=== PATIENT | male | born 1955 | race Caucasian/White ===

== ENCOUNTER 2018-10-16 20:09 | Inpatient (IN) | payer MEDICAID, MEDICARE, OTHER, SELFPAY ==
[~2018-10-16] VITALS: Ht 175.3 cm; Wt 122.6 kg
[2018-10-16] MEDS ORDERED: methylPREDNISolone SOD SUCC 125 MG/2 ML ONE (20:42)
--- NOTE | 2018-10-16 20:52 | NUR ---
Pt presents to ed c/o hx of copd and recent pneumonia w/ hospitalization. Pt has sobx2 day and has o2 sat of 84% on 5L nc. Pt put on NRB at 10L and spo2 at 92%. Pt states that is his normal spo2 level. Pt wob started to decrease w/ increase spo2. Iv established and medicatd per aug. all monitoring applied.
[2018-10-16] MEDS ORDERED: ALBUTEROL/IPRATROPIUM 2.5MG/0.5MG, 3 ML NPPB ONE (21:00)
[2018-10-16] MEDS ORDERED: SODIUM CHLORIDE FLUSH 10ML SYR IVF ONE (21:00)
[2018-10-16] MEDS ORDERED: methylPREDNISolone SOD SUCC 125 MG/2 ML IVP ONE (21:00)
[2018-10-16 21:18] LABS: BASOPHILS # (AUTO) 0.03 x10^3/uL (0-0.1); BASOPHILS % (AUTO) 0 % (0-1); EOSINOPHILS # (AUTO) 0.23 x10^3/uL (0-0.4); EOSINOPHILS % (AUTO) 4 % (1-7); LYMPHOCYTES # (AUTO) 0.91 x10^3/uL (1-3.4); LYMPHOCYTES % (AUTO) 14 % (22-44); MD NO; MEAN CORPUSCULAR HEMOGLOBIN 29.3 pg (27.5-34.5); MEAN CORPUSCULAR VOLUME 88.9 fL (81-97); MEAN PLATELET VOLUME 7.6 fL (7.4-10.4); MONOCYTES # (AUTO) 0.98 x10^3/uL (0.2-0.8); MONOCYTES % (AUTO) 15 % (2-9); NEUTROPHILS # (AUTO) 4.45 x10^3/uL (1.8-6.8); NEUTROPHILS % (AUTO) 67 % (42-75); PLATELET COUNT 196 x10^3/uL (130-400); RED BLOOD COUNT 4.95 x10^6/uL (4.38-5.82); RED CELL DISTRIBUTION WIDTH 14.7 % (9.4-14.8)
[2018-10-16 21:19] LABS: INTERNATIONAL NORMALIZED RATIO 1.02 (0.93-1.1); PROTHROMBIN TIME 10.7 Seconds (9.6-11.5)
[2018-10-16 21:20] LABS: ALANINE AMINOTRANSFERASE 26 U/L (12-78); ALBUMIN 3.7 g/dL (3.4-5.0); ANION GAP 4 mmol/L (5-15); CALCIUM 8.7 mg/dL (8.5-10.1); CHLORIDE 108 mmol/L (98-107); CREATININE 1.02 mg/dL (0.7-1.3)
[2018-10-16 21:24] LABS: ALKALINE PHOSPHATASE 49 U/L (45-117); BILIRUBIN,TOTAL 0.3 mg/dL (0.2-1.0); TOTAL PROTEIN 7.2 g/dL (6.4-8.2); TROPONIN I < 0.015 ng/mL (0.000-0.045)
--- NOTE | 2018-10-16 21:51 | NUR ---
Pt given ice chips per request. Tbadm. Awaiting adm order. No other immediate needs.
[2018-10-16] MEDS ORDERED: ALBUTEROL/IPRATROPIUM 2.5MG/0.5MG, 3 ML ONE (22:29)
[2018-10-16 22:58] VITALS: BP 137/83
[2018-10-17] MEDS ORDERED: DOCUSATE 100 MG CAPSULE PO PRN
[2018-10-17] MEDS ORDERED: ENALAPRILAT 1.25 MG/ML, 2ML IVPush PRN
[2018-10-17] MEDS ORDERED: ONDANSETRON 2MG/ML, 2ML IVPush PRN
[2018-10-17] MEDS: TEMAZEPAM 15 MG CAPSULE PO PRN (00:33)
[2018-10-17] MEDS: ENOXAPARIN 40 MG/0.4 ML SQ SCH (00:34)
[2018-10-17] MEDS: INSULIN LISPRO 100 UNITS/ML, PEN SQ-INSULIN SCH ×5 (01:00→20:24)
[2018-10-17] MEDS ORDERED: AMLO25PO PO (01:20)
[2018-10-17] MEDS ORDERED: METO5VIA PO (01:24)
[2018-10-17] MEDS ORDERED: ASPI-515 PO (01:24)
[2018-10-17] MEDS ORDERED: FLUT1DIS3 INH (01:25)
[2018-10-17] MEDS ORDERED: FLUT1AER INH (01:31)
[2018-10-17 02:13] VITALS: BP 134/90
[2018-10-17] MEDS: ALBUTEROL/IPRATROPIUM 2.5MG/0.5MG, 3 ML NPPB SCH ×6 (02:30→23:00)
[2018-10-17] MEDS ORDERED: ALBU6.7H INH (03:05)
[2018-10-17] MEDS ORDERED: ALBU8.5H8 INH (03:06)
[2018-10-17 04:55] LABS: BASOPHILS % (AUTO) 0 % (0-1); EOSINOPHILS % (AUTO) 0 % (1-7); LYMPHOCYTES # (AUTO) 0.42 x10^3/uL (1-3.4); LYMPHOCYTES % (AUTO) 7 % (22-44); MD NO; MEAN CORPUSCULAR HEMOGLOBIN 29.1 pg (27.5-34.5); MEAN CORPUSCULAR HGB CONC 32.8 g/dL (33.2-36.2); MEAN CORPUSCULAR VOLUME 88.7 fL (81-97); MEAN PLATELET VOLUME 7.6 fL (7.4-10.4); MONOCYTES # (AUTO) 0.07 x10^3/uL (0.2-0.8); MONOCYTES % (AUTO) 1 % (2-9); NEUTROPHILS # (AUTO) 5.79 x10^3/uL (1.8-6.8); NEUTROPHILS % (AUTO) 92 % (42-75); PLATELET COUNT 218 x10^3/uL (130-400); RED BLOOD COUNT 5.03 x10^6/uL (4.38-5.82); RED CELL DISTRIBUTION WIDTH 14.9 % (9.4-14.8)
[2018-10-17 05:09] LABS: ANION GAP 6 mmol/L (5-15); CALCIUM 9.1 mg/dL (8.5-10.1); CHLORIDE 108 mmol/L (98-107)
[2018-10-17] MEDS: methylPREDNISolone SOD SUCC 40 MG/ML IV SCH ×3 (06:15→17:14)
[2018-10-17] MEDS: GUAIFENESIN 200 MG TABLET PO SCH ×4 (06:15→20:42)
[2018-10-17 06:53] VITALS: BP 114/72
[2018-10-17 13:08] VITALS: BP 117/79
[2018-10-17 20:14] VITALS: BP 128/77
[2018-10-18] MEDS: TEMAZEPAM 15 MG CAPSULE PO PRN ×2 (00:18→22:30)
[2018-10-18] MEDS: methylPREDNISolone SOD SUCC 40 MG/ML IV SCH ×4 (00:18→17:28)
[2018-10-18] MEDS: ENOXAPARIN 40 MG/0.4 ML SQ SCH (00:18)
[2018-10-18 01:13] VITALS: BP 145/75
[2018-10-18] MEDS: ALBUTEROL/IPRATROPIUM 2.5MG/0.5MG, 3 ML NPPB SCH ×6 (02:34→22:12)
[2018-10-18 06:03] LABS: ANION GAP 4 mmol/L (5-15); CALCIUM 8.8 mg/dL (8.5-10.1); CHLORIDE 110 mmol/L (98-107)
[2018-10-18 06:04] LABS: CREATININE 1.14 mg/dL (0.7-1.3)
[2018-10-18] MEDS: GUAIFENESIN 200 MG TABLET PO SCH ×4 (06:36→21:32)
[2018-10-18] MEDS: INSULIN LISPRO 100 UNITS/ML, PEN SQ-INSULIN SCH ×4 (07:00→21:32)
[2018-10-18 08:00] VITALS: BP 132/76
[2018-10-18] MEDS: CETIRIZINE 10 MG TABLET PO SCH (09:42)
[2018-10-18 12:20] VITALS: BP 135/84
[2018-10-18] MEDS: ACETAMINOPHEN 325 MG TABLET PO PRN ×2 (17:42→22:30)
[2018-10-18] MEDS: LIDODERM 5% PATCH TD PRN (18:13)
[2018-10-18 19:37] VITALS: BP 148/87
[2018-10-19] MEDS: methylPREDNISolone SOD SUCC 40 MG/ML IV SCH ×5 (00:57→20:55)
[2018-10-19 01:54] VITALS: BP 135/79
[2018-10-19] MEDS: ALBUTEROL/IPRATROPIUM 2.5MG/0.5MG, 3 ML NPPB SCH ×6 (02:41→23:09)
[2018-10-19] MEDS: GABAPENTIN 300 MG CAPSULE PO PRN (03:44)
[2018-10-19] MEDS: ACETAMINOPHEN 325 MG TABLET PO PRN (03:48)
[2018-10-19 05:23] LABS: BASOPHILS % (AUTO) 0 % (0-1); EOSINOPHILS % (AUTO) 0 % (1-7); LYMPHOCYTES # (AUTO) 0.63 x10^3/uL (1-3.4); LYMPHOCYTES % (AUTO) 5 % (22-44); MD NO; MEAN CORPUSCULAR HEMOGLOBIN 29.8 pg (27.5-34.5); MEAN CORPUSCULAR HGB CONC 33.5 g/dL (33.2-36.2); MONOCYTES # (AUTO) 0.43 x10^3/uL (0.2-0.8); MONOCYTES % (AUTO) 3 % (2-9); NEUTROPHILS # (AUTO) 12.75 x10^3/uL (1.8-6.8); NEUTROPHILS % (AUTO) 92 % (42-75); PLATELET COUNT 272 x10^3/uL (130-400); RED BLOOD COUNT 4.77 x10^6/uL (4.38-5.82); RED CELL DISTRIBUTION WIDTH 14.6 % (9.4-14.8)
[2018-10-19 05:26] LABS: CHLORIDE 106 mmol/L (98-107)
[2018-10-19 05:41] LABS: ANION GAP 7 mmol/L (5-15); CALCIUM 8.8 mg/dL (8.5-10.1); CREATININE 1.18 mg/dL (0.7-1.3)
[2018-10-19] MEDS: GUAIFENESIN 200 MG TABLET PO SCH ×4 (06:06→20:55)
[2018-10-19] MEDS: ENOXAPARIN 40 MG/0.4 ML SQ SCH (06:06)
[2018-10-19 06:49] VITALS: BP 133/87
[2018-10-19] MEDS: INSULIN LISPRO 100 UNITS/ML, PEN SQ-INSULIN SCH ×4 (07:00→20:55)
[2018-10-19] MEDS: CETIRIZINE 10 MG TABLET PO SCH (08:26)
[2018-10-19] MEDS: METHOCARBAMOL 500 MG TABLET PO PRN ×2 (11:19→20:55)
[2018-10-19 18:20] VITALS: BP 137/81
[2018-10-19] MEDS: CEFTRIAXONE PMX 2GM/50ML 50 ML IV SCH (22:46)
[2018-10-19] MEDS: AZITHROMYCIN 500 MG in SODIUM CHLORIDE 0.9% 250 ML IV SCH (23:27)
[2018-10-20] MEDS: TEMAZEPAM 15 MG CAPSULE PO PRN ×2 (00:45→22:35)
[2018-10-20 01:05] VITALS: BP 139/77
[2018-10-20] MEDS: ALBUTEROL/IPRATROPIUM 2.5MG/0.5MG, 3 ML NPPB SCH ×6 (02:05→22:30)
[2018-10-20 04:03] LABS: BASOPHILS # (AUTO) 0.01 x10^3/uL (0-0.1); BASOPHILS % (AUTO) 0 % (0-1); EOSINOPHILS % (AUTO) 0 % (1-7); LYMPHOCYTES % (AUTO) 5 % (22-44); MD NO; MEAN CORPUSCULAR HEMOGLOBIN 29.1 pg (27.5-34.5); MEAN CORPUSCULAR HGB CONC 32.7 g/dL (33.2-36.2); MEAN PLATELET VOLUME 8.1 fL (7.4-10.4); MONOCYTES # (AUTO) 0.94 x10^3/uL (0.2-0.8); MONOCYTES % (AUTO) 8 % (2-9); NEUTROPHILS # (AUTO) 10.84 x10^3/uL (1.8-6.8); NEUTROPHILS % (AUTO) 88 % (42-75); PLATELET COUNT 234 x10^3/uL (130-400); RED BLOOD COUNT 4.71 x10^6/uL (4.38-5.82); RED CELL DISTRIBUTION WIDTH 14.3 % (9.4-14.8)
[2018-10-20 04:17] LABS: HEMOGLOBIN A1C 5.5 % (4.2-6.3)
[2018-10-20 04:20] LABS: ANION GAP 5 mmol/L (5-15); CALCIUM 8.3 mg/dL (8.5-10.1); CHLORIDE 108 mmol/L (98-107)
[2018-10-20] MEDS: ENOXAPARIN 40 MG/0.4 ML SQ SCH (06:11)
[2018-10-20] MEDS: GUAIFENESIN 200 MG TABLET PO SCH ×4 (06:11→20:07)
[2018-10-20 08:05] VITALS: BP 137/81
[2018-10-20] MEDS: methylPREDNISolone SOD SUCC 40 MG/ML IV SCH ×3 (09:44→20:06)
[2018-10-20] MEDS: INSULIN LISPRO 100 UNITS/ML, PEN SQ-INSULIN SCH ×4 (09:45→21:00)
[2018-10-20] MEDS: CETIRIZINE 10 MG TABLET PO SCH (09:45)
[2018-10-20 14:33] VITALS: BP 134/81
[2018-10-20 19:18] VITALS: BP 144/91
[2018-10-20] MEDS: LIDODERM 5% PATCH TD PRN (20:05)
[2018-10-20] MEDS: ACETAMINOPHEN 325 MG TABLET PO PRN (20:07)
[2018-10-20] MEDS: GABAPENTIN 300 MG CAPSULE PO PRN (20:08)
[2018-10-20] MEDS: CEFTRIAXONE PMX 2GM/50ML 50 ML IV SCH (22:29)
[2018-10-20] MEDS: AZITHROMYCIN 500 MG in SODIUM CHLORIDE 0.9% 250 ML IV SCH (23:30)
[2018-10-21] MEDS: ALBUTEROL/IPRATROPIUM 2.5MG/0.5MG, 3 ML NPPB SCH ×6 (02:30→22:57)
[2018-10-21 04:27] VITALS: BP 142/78
[2018-10-21] MEDS: methylPREDNISolone SOD SUCC 40 MG/ML IV SCH ×4 (05:20→21:15)
[2018-10-21] MEDS: ENOXAPARIN 40 MG/0.4 ML SQ SCH (05:21)
[2018-10-21] MEDS: GUAIFENESIN 200 MG TABLET PO SCH ×4 (05:21→21:14)
[2018-10-21 07:28] VITALS: BP 137/88
[2018-10-21] MEDS: CETIRIZINE 10 MG TABLET PO SCH (08:59)
[2018-10-21] MEDS: INSULIN LISPRO 100 UNITS/ML, PEN SQ-INSULIN SCH ×4 (08:59→21:15)
[2018-10-21] MEDS: GABAPENTIN 300 MG CAPSULE PO PRN (11:36)
[2018-10-21] MEDS: ACETAMINOPHEN 325 MG TABLET PO PRN (11:36)
[2018-10-21 12:53] VITALS: BP 148/94
[2018-10-21] MEDS ORDERED: VANCOMYCIN PMX 1GM/200ML 200 ML IV ONE (15:00)
[2018-10-21] MEDS ORDERED: VANCOMYCIN PER PHARMACY MC SCH (15:00)
[2018-10-21] MEDS ORDERED: VANCOMYCIN 2,000 MG in SODIUM CHLORIDE 0.9% 500 ML IV SCH (15:30)
[2018-10-21] MEDS ORDERED: PHARMACOKINETIC CONSULTATION MC ONE (15:30)
[2018-10-21] MEDS ORDERED: PHARMACOKINETIC MONITORING MC PRN (15:30)
[2018-10-21] MEDS: AMPICILLIN/SULBACTAM 3 GM in SODIUM CHLORIDE 0.9% 100 ML IV SCH ×2 (17:06→23:57)
[2018-10-21 21:12] VITALS: BP 159/92
[2018-10-21] MEDS: MAGNESIUM OXIDE 400 MG TABLET PO SCH (21:14)
[2018-10-22 00:25] VITALS: BP 164/98
[2018-10-22] MEDS: TEMAZEPAM 15 MG CAPSULE PO PRN ×3 (01:38→22:30)
[2018-10-22] MEDS: ALBUTEROL/IPRATROPIUM 2.5MG/0.5MG, 3 ML NPPB SCH ×6 (03:06→22:56)
[2018-10-22] MEDS: methylPREDNISolone SOD SUCC 40 MG/ML IV SCH ×4 (04:17→21:04)
[2018-10-22] MEDS: AMPICILLIN/SULBACTAM 3 GM in SODIUM CHLORIDE 0.9% 100 ML IV SCH (05:55)
[2018-10-22] MEDS: GUAIFENESIN 200 MG TABLET PO SCH ×4 (05:55→21:03)
[2018-10-22] MEDS: ENOXAPARIN 40 MG/0.4 ML SQ SCH (05:55)
[2018-10-22 06:00] LABS: CHLORIDE 107 mmol/L (98-107)
[2018-10-22 06:07] LABS: ALANINE AMINOTRANSFERASE 53 U/L (12-78); ALKALINE PHOSPHATASE 35 U/L (45-117); ANION GAP 3 mmol/L (5-15); BILIRUBIN,TOTAL 0.3 mg/dL (0.2-1.0); CREATININE 0.93 mg/dL (0.7-1.3)
[2018-10-22] MEDS: INSULIN LISPRO 100 UNITS/ML, PEN SQ-INSULIN SCH ×4 (07:00→21:04)
[2018-10-22 07:11] VITALS: BP 152/93
[2018-10-22] MEDS: CETIRIZINE 10 MG TABLET PO SCH (09:01)
[2018-10-22] MEDS: MAGNESIUM OXIDE 400 MG TABLET PO SCH ×2 (09:01→21:03)
[2018-10-22] MEDS: LIDODERM 5% PATCH TD PRN (09:13)
[2018-10-22] MEDS: GABAPENTIN 300 MG CAPSULE PO PRN (09:13)
[2018-10-22] MEDS: METHOCARBAMOL 500 MG TABLET PO PRN (09:13)
[2018-10-22] MEDS ORDERED: OMNIPAQUE 350 MG/ML, 150 ML BOTTLE ONE (10:06)
[2018-10-22] MEDS: CEFTRIAXONE PMX 2GM/50ML 50 ML IV SCH (12:08)
[2018-10-22] MEDS: AZITHROMYCIN 500 MG in SODIUM CHLORIDE 0.9% 250 ML IV SCH (12:08)
[2018-10-22 12:53] VITALS: BP 161/88
[2018-10-22] MEDS: BUDESONIDE 0.5 MG/2 ML INHA INH SCH (18:36)
[2018-10-22 19:07] VITALS: BP 156/95
[2018-10-23 01:52] VITALS: BP 142/83
[2018-10-23] MEDS: methylPREDNISolone SOD SUCC 40 MG/ML IV SCH ×4 (03:58→21:18)
[2018-10-23] MEDS: GUAIFENESIN 200 MG TABLET PO SCH ×4 (05:35→20:24)
[2018-10-23] MEDS: ENOXAPARIN 40 MG/0.4 ML SQ SCH (05:35)
[2018-10-23] MEDS: BUDESONIDE 0.5 MG/2 ML INHA INH SCH ×2 (06:45→19:40)
[2018-10-23] MEDS: ALBUTEROL/IPRATROPIUM 2.5MG/0.5MG, 3 ML NPPB SCH ×5 (06:45→23:00)
[2018-10-23] MEDS: INSULIN LISPRO 100 UNITS/ML, PEN SQ-INSULIN SCH ×4 (07:00→21:00)
[2018-10-23] MEDS: MAGNESIUM OXIDE 400 MG TABLET PO SCH ×2 (07:36→20:25)
[2018-10-23] MEDS: METHOCARBAMOL 500 MG TABLET PO PRN (07:36)
[2018-10-23] MEDS: LIDODERM 5% PATCH TD PRN (07:36)
[2018-10-23] MEDS: CETIRIZINE 10 MG TABLET PO SCH (07:36)
[2018-10-23] MEDS: GABAPENTIN 300 MG CAPSULE PO PRN ×2 (07:36→21:39)
[2018-10-23 08:06] VITALS: BP 155/89
[2018-10-23] MEDS: CEFTRIAXONE PMX 2GM/50ML 50 ML IV SCH (11:30)
[2018-10-23] MEDS: AZITHROMYCIN 500 MG in SODIUM CHLORIDE 0.9% 250 ML IV SCH (12:13)
[2018-10-23 13:25] VITALS: BP 138/83
[2018-10-23 21:13] VITALS: BP 148/97
[2018-10-23] MEDS: TEMAZEPAM 15 MG CAPSULE PO PRN (21:18)
[2018-10-24] MEDS: ALBUTEROL/IPRATROPIUM 2.5MG/0.5MG, 3 ML NPPB SCH ×6 (03:15→22:53)
[2018-10-24 04:32] VITALS: BP 134/76
[2018-10-24 04:52] LABS: FIO2 97.4 %
[2018-10-24] MEDS: methylPREDNISolone SOD SUCC 40 MG/ML IV SCH ×4 (05:30→23:51)
[2018-10-24] MEDS: ENOXAPARIN 40 MG/0.4 ML SQ SCH (05:30)
[2018-10-24] MEDS: GUAIFENESIN 200 MG TABLET PO SCH ×4 (05:34→20:29)
[2018-10-24] MEDS: INSULIN LISPRO 100 UNITS/ML, PEN SQ-INSULIN SCH ×4 (07:00→21:01)
[2018-10-24] MEDS: BUDESONIDE 0.5 MG/2 ML INHA INH SCH ×2 (07:23→19:00)
[2018-10-24 07:34] VITALS: BP 152/90
[2018-10-24] MEDS: GABAPENTIN 300 MG CAPSULE PO PRN ×2 (08:06→21:01)
[2018-10-24] MEDS: MAGNESIUM OXIDE 400 MG TABLET PO SCH ×2 (08:06→20:29)
[2018-10-24] MEDS: METHOCARBAMOL 500 MG TABLET PO PRN (08:06)
[2018-10-24] MEDS: CETIRIZINE 10 MG TABLET PO SCH (08:06)
[2018-10-24] MEDS: LIDODERM 5% PATCH TD PRN ×2 (08:07→17:15)
[2018-10-24 08:24] VITALS: BP 165/99
[2018-10-24] MEDS: CEFTRIAXONE PMX 2GM/50ML 50 ML IV SCH (10:54)
[2018-10-24] MEDS: AZITHROMYCIN 500 MG in SODIUM CHLORIDE 0.9% 250 ML IV SCH (12:11)
[2018-10-24 12:43] VITALS: BP 146/91
[2018-10-24 20:24] VITALS: BP 166/90
[2018-10-25 01:39] VITALS: BP 143/64
[2018-10-25] MEDS: ALBUTEROL/IPRATROPIUM 2.5MG/0.5MG, 3 ML NPPB SCH ×6 (01:53→22:27)
[2018-10-25] MEDS: GUAIFENESIN 200 MG TABLET PO SCH ×4 (06:00→22:12)
[2018-10-25] MEDS: ENOXAPARIN 40 MG/0.4 ML SQ SCH (06:01)
[2018-10-25] MEDS: methylPREDNISolone SOD SUCC 40 MG/ML IV SCH ×4 (06:07→22:12)
[2018-10-25] MEDS: BUDESONIDE 0.5 MG/2 ML INHA INH SCH ×2 (07:12→20:09)
[2018-10-25 09:51] VITALS: BP 131/81
[2018-10-25] MEDS: MAGNESIUM OXIDE 400 MG TABLET PO SCH ×2 (09:53→22:12)
[2018-10-25] MEDS: CETIRIZINE 10 MG TABLET PO SCH (09:53)
[2018-10-25] MEDS: INSULIN LISPRO 100 UNITS/ML, PEN SQ-INSULIN SCH ×4 (09:53→22:13)
[2018-10-25] MEDS: CEFTRIAXONE PMX 2GM/50ML 50 ML IV SCH (11:21)
[2018-10-25] MEDS: AZITHROMYCIN 500 MG in SODIUM CHLORIDE 0.9% 250 ML IV SCH (12:28)
[2018-10-25 13:10] VITALS: BP 134/82
[2018-10-25 19:51] VITALS: BP 145/88
[2018-10-26 01:11] VITALS: BP 129/72
[2018-10-26] MEDS: ALBUTEROL/IPRATROPIUM 2.5MG/0.5MG, 3 ML NPPB SCH ×4 (02:35→15:16)
[2018-10-26] MEDS: ENOXAPARIN 40 MG/0.4 ML SQ SCH (05:48)
[2018-10-26] MEDS: methylPREDNISolone SOD SUCC 40 MG/ML IV SCH ×2 (05:48→11:26)
[2018-10-26] MEDS: GUAIFENESIN 200 MG TABLET PO SCH ×2 (05:49→11:26)
[2018-10-26 07:04] VITALS: BP 140/90
[2018-10-26] MEDS: BUDESONIDE 0.5 MG/2 ML INHA INH SCH (07:15)
[2018-10-26] MEDS: INSULIN LISPRO 100 UNITS/ML, PEN SQ-INSULIN SCH ×2 (07:48→11:27)
[2018-10-26] MEDS: MAGNESIUM OXIDE 400 MG TABLET PO SCH (07:48)
[2018-10-26] MEDS: CETIRIZINE 10 MG TABLET PO SCH (07:48)
[2018-10-26] MEDS ORDERED: CEFD300C37 PO (11:14)
[2018-10-26] MEDS ORDERED: PRED10TA PO ×2 (11:14)
[2018-10-26] MEDS ORDERED: LIDO700A20 TD (11:14)
[2018-10-26] MEDS ORDERED: GUAI-110 PO (11:14)
[2018-10-26] MEDS ORDERED: MAGN400T50 PO (11:14)
[2018-10-26] MEDS ORDERED: GABA300C10 PO (11:14)
[2018-10-26] MEDS ORDERED: AZIT500T PO ×2 (11:14)
[2018-10-26] MEDS: CEFTRIAXONE PMX 2GM/50ML 50 ML IV SCH (11:27)
[2018-10-26] MEDS: AZITHROMYCIN 500 MG in SODIUM CHLORIDE 0.9% 250 ML IV SCH (12:16)
[2018-10-26 13:35] VITALS: BP 138/87
== END 2018-10-26 16:31 | disposition home or self-care (01) | DRG 871 ==
LOC: ED 21:14 → EDIP 21:52 → 4WST 22:57 → DCLOUNGE 10-26 16:20
PROVIDERS: ADMIT Family Medicine; ATTEND Family Medicine
DX: A41.9 Sepsis, unspecified organism (principal); J13 Pneumonia due to Streptococcus pneumoniae; J96.21 Acute and chronic respiratory failure with hypoxia; J44.1 Chronic obstructive pulmonary disease with (acute) exacerbation; J98.11 Atelectasis; J44.0 Chronic obstructive pulmonary disease with (acute) lower respiratory infection; E66.01 Morbid (severe) obesity due to excess calories; D72.829 Elevated white blood cell count, unspecified; T38.0X5A Adverse effect of glucocorticoids and synthetic analogues, initial encounter; E78.5 Hyperlipidemia, unspecified; I11.9 Hypertensive heart disease without heart failure; Z68.39 Body mass index [BMI] 39.0-39.9, adult; Z82.5 Family history of asthma and other chronic lower respiratory diseases; Z83.3 Family history of diabetes mellitus; Z86.711 Personal history of pulmonary embolism; Z99.81 Dependence on supplemental oxygen; Y92.89 Other specified places as the place of occurrence of the external cause
CPT/HCPCS: 36415; 36600; 71045; 71046; 71275; 80048; 80053; 82803; 82962; 83036; 83605; 83735; 83880; 84100; 84145; 84484; 85025; 85610; 85730; 87040; 87070; 87077; 87184; 87205; 93005; 94640; 94667; 94668; 96374; G0378; J0295; J0456; J0696; J1650; J7620; J7626; Q9967; J1815; J2920; J2930; J7050

== ENCOUNTER 2018-11-01 14:29 | Inpatient (IN) | payer MEDICARE ==
[~2018-11-01] VITALS: Ht 175.3 cm; Wt 119.0 kg
[~2018-11-01 14:29] MED LIST: ALBU6.7H INH; ALBU8.5H8 INH; AMLO25PO PO; ASPI-515 PO; AZIT500T PO; CEFD300C37 PO; FLUT1AER INH; FLUT1DIS3 INH; GABA300C10 PO; GUAI-110 PO; LIDO700A20 TD; MAGN400T50 PO; METO5VIA PO; PRED10TA PO
--- NOTE | 2018-11-01 14:44 | NUR ---
EKG DONE IN TRIAGE.
--- NOTE | 2018-11-01 14:46 | NUR ---
PT WEARING OWN OXYGEN AT 4L/MIN, SPO2 90%. OXYGEN INCREASED TO 6L/MIN IN TRIAGE. RESPS EVEN AND UNLABORED.
--- NOTE | 2018-11-01 15:07 | NUR ---
[employer] MA[employer]; PT TO ROOM FROM LOBBY
--- NOTE | 2018-11-01 15:28 | NUR ---
TASK RN: PT SITTING UP IN [facility], SPEAKING IN APPROX 5 WORD SENTENCES. NON-LABORED BREATHING. PT REPORTS WORSENING SOB AND PRODUCTIVE COUGH X "A FEW DAYS". DENIES CP/FEVER. BLE NON-EDEMATOUS. PT REPORTS HX OF COPD W/ BASELINE 3-4L O2 NEEDS. PT CURRENTLY ON 6L BY MD, SPO2 93%. BP/SPO2/ECG MONITORING IN PLACE. NSR W/ ST DEPRESSION ON MONITOR. EKG COMPLETED IN TRIAGE.
--- NOTE | 2018-11-01 15:31 | NUR ---
REPORT TO LIZETTE JAQUEZ
[2018-11-01 15:35] LABS: BASOPHILS # (AUTO) 0.31 x10^3/uL (0-0.1); BASOPHILS % (AUTO) 2 % (0-1); EOSINOPHILS # (AUTO) 0.02 x10^3/uL (0-0.4); EOSINOPHILS % (AUTO) 0 % (1-7); LYMPHOCYTES # (AUTO) 0.56 x10^3/uL (1-3.4); LYMPHOCYTES % (AUTO) 4 % (22-44); MD NO; MEAN CORPUSCULAR HEMOGLOBIN 29.9 pg (27.5-34.5); MEAN CORPUSCULAR HGB CONC 33.4 g/dL (33.2-36.2); MEAN CORPUSCULAR VOLUME 89.4 fL (81-97); MEAN PLATELET VOLUME 7.7 fL (7.4-10.4); MONOCYTES # (AUTO) 0.56 x10^3/uL (0.2-0.8); MONOCYTES % (AUTO) 4 % (2-9); NEUTROPHILS # (AUTO) 13.96 x10^3/uL (1.8-6.8); NEUTROPHILS % (AUTO) 91 % (42-75); PLATELET COUNT 197 x10^3/uL (130-400); RED BLOOD COUNT 5.14 x10^6/uL (4.38-5.82); RED CELL DISTRIBUTION WIDTH 15.5 % (9.4-14.8)
[2018-11-01 15:47] LABS: CHLORIDE 105 mmol/L (98-107)
[2018-11-01 15:56] LABS: ALANINE AMINOTRANSFERASE 47 U/L (12-78); ALBUMIN 3.2 g/dL (3.4-5.0); ALKALINE PHOSPHATASE 45 U/L (45-117); ANION GAP 3 mmol/L (5-15); BILIRUBIN,TOTAL 0.5 mg/dL (0.2-1.0); CALCIUM 8.9 mg/dL (8.5-10.1); TOTAL PROTEIN 6.5 g/dL (6.4-8.2); TROPONIN I < 0.015 ng/mL (0.000-0.045)
[2018-11-01] MEDS ORDERED: LABETALOL 5MG/ML, 20ML IVPush PRN (18:00)
[2018-11-01] MEDS ORDERED: ONDANSETRON ODT 4 MG PO PRN (18:00)
[2018-11-01] MEDS ORDERED: POLYETHYLENE GLYCOL 17 GM PACKET PO PRN (18:00)
[2018-11-01] MEDS ORDERED: ONDANSETRON 2MG/ML, 2ML IVPush PRN (18:00)
[2018-11-01 18:02] VITALS: BP 135/78
[2018-11-01] MEDS: METOPROLOL TARTRATE 25 MG TABLET PO SCH (18:26)
[2018-11-01 18:27] LABS: FREE T4 (FREE THYROXINE) 0.9 ng/dL (0.76-1.46)
[2018-11-01] MEDS: methylPREDNISolone SOD SUCC 125 MG/2 ML IVPush SCH (18:33)
[2018-11-01] MEDS ORDERED: ALBUTEROL/IPRATROPIUM 2.5MG/0.5MG, 3 ML ONE (20:05)
[2018-11-01 20:10] VITALS: BP 109/64
[2018-11-01] MEDS ORDERED: ALBUTEROL SULFATE 2.5 MG/3 ML NPPB PRN (20:30)
[2018-11-01] MEDS ORDERED: ALBUTEROL/IPRATROPIUM 2.5MG/0.5MG, 3 ML NPPB SCH (21:00)
[2018-11-01 23:50] LABS: RAPID INFLUENZA A Negative (Negative); RAPID INFLUENZA B Negative (Negative)
[2018-11-02] MEDS: methylPREDNISolone SOD SUCC 125 MG/2 ML IVPush SCH ×4 (00:38→18:18)
[2018-11-02 01:20] VITALS: BP 111/67
[2018-11-02 04:40] LABS: MEAN CORPUSCULAR HEMOGLOBIN 29.5 pg (27.5-34.5); MEAN CORPUSCULAR HGB CONC 32.9 g/dL (33.2-36.2); MEAN CORPUSCULAR VOLUME 89.7 fL (81-97); PLATELET COUNT 174 x10^3/uL (130-400); RED BLOOD COUNT 5.11 x10^6/uL (4.38-5.82); RED CELL DISTRIBUTION WIDTH 15.2 % (9.4-14.8)
[2018-11-02 05:12] LABS: ALANINE AMINOTRANSFERASE 42 U/L (12-78); ANION GAP 7 mmol/L (5-15); CALCIUM 8.5 mg/dL (8.5-10.1); CHLORIDE 106 mmol/L (98-107)
[2018-11-02 05:23] LABS: ALKALINE PHOSPHATASE 43 U/L (45-117); BILIRUBIN,TOTAL 0.4 mg/dL (0.2-1.0); CREATININE 1.12 mg/dL (0.7-1.3); THYROID STIMULATING HORMONE 0.753 mIU/L (0.358-3.740); TOTAL PROTEIN 6.6 g/dL (6.4-8.2)
[2018-11-02 05:49] LABS: BASOPHILS # (AUTO) 0.03 x10^3/uL (0-0.1); BASOPHILS % (AUTO) 0 % (0-1); EOSINOPHILS # (AUTO) 0.03 x10^3/uL (0-0.4); EOSINOPHILS % (AUTO) 0 % (1-7); LYMPHOCYTES # (AUTO) 0.38 x10^3/uL (1-3.4); LYMPHOCYTES % (AUTO) 3 % (22-44); MD SCAN; MONOCYTES # (AUTO) 0.12 x10^3/uL (0.2-0.8); MONOCYTES % (AUTO) 1 % (2-9); NEUTROPHILS # (AUTO) 12.94 x10^3/uL (1.8-6.8); NEUTROPHILS % (AUTO) 96 % (42-75)
[2018-11-02] MEDS ORDERED: FLUTICASONE/VILANTEROL 100-25MCG/INH INH SCH (06:00)
[2018-11-02] MEDS: METOPROLOL TARTRATE 25 MG TABLET PO SCH ×2 (06:36→18:18)
[2018-11-02 07:01] VITALS: BP 114/69
[2018-11-02] MEDS: SENNA/DOCUSATE TABLET PO SCH (09:00)
[2018-11-02] MEDS: ALBUTEROL SULFATE 2.5 MG/3 ML NPPB SCH ×3 (09:20→20:48)
[2018-11-02] MEDS: BUDESONIDE 0.5 MG/2 ML INHA NPPB SCH ×2 (09:20→20:48)
[2018-11-02] MEDS: ASPIRIN 81 MG TABLET EC PO SCH (13:45)
[2018-11-02 14:43] VITALS: BP 137/88
[2018-11-02 19:59] VITALS: BP 122/81
[2018-11-03] MEDS: methylPREDNISolone SOD SUCC 125 MG/2 ML IVPush SCH ×3 (00:45→12:13)
[2018-11-03 01:21] VITALS: BP 131/86
[2018-11-03] MEDS: ALBUTEROL SULFATE 2.5 MG/3 ML NPPB SCH ×4 (03:00→18:44)
[2018-11-03 04:31] LABS: MEAN CORPUSCULAR HEMOGLOBIN 29.6 pg (27.5-34.5); MEAN CORPUSCULAR HGB CONC 32.1 g/dL (33.2-36.2); MEAN CORPUSCULAR VOLUME 92.2 fL (81-97); PLATELET COUNT 170 x10^3/uL (130-400); RED BLOOD COUNT 4.84 x10^6/uL (4.38-5.82)
[2018-11-03 04:37] LABS: ALANINE AMINOTRANSFERASE 38 U/L (12-78); ANION GAP 6 mmol/L (5-15); CALCIUM 8.3 mg/dL (8.5-10.1); CHLORIDE 103 mmol/L (98-107); CREATININE 1.15 mg/dL (0.7-1.3)
[2018-11-03 04:40] LABS: ALKALINE PHOSPHATASE 39 U/L (45-117); BILIRUBIN,TOTAL 0.3 mg/dL (0.2-1.0); TOTAL PROTEIN 6.1 g/dL (6.4-8.2)
[2018-11-03 04:55] LABS: BASOPHILS # (AUTO) 0.01 x10^3/uL (0-0.1); BASOPHILS % (AUTO) 0 % (0-1); EOSINOPHILS % (AUTO) 0 % (1-7); LYMPHOCYTES # (AUTO) 0.36 x10^3/uL (1-3.4); LYMPHOCYTES % (AUTO) 2 % (22-44); MD SCAN; MONOCYTES # (AUTO) 0.46 x10^3/uL (0.2-0.8); MONOCYTES % (AUTO) 3 % (2-9); NEUTROPHILS % (AUTO) 95 % (42-75)
[2018-11-03] MEDS: METOPROLOL TARTRATE 25 MG TABLET PO SCH ×2 (06:32→18:07)
[2018-11-03 07:15] VITALS: BP 119/76
[2018-11-03] MEDS: BUDESONIDE 0.5 MG/2 ML INHA NPPB SCH ×2 (09:05→18:44)
[2018-11-03] MEDS: ASPIRIN 81 MG TABLET EC PO SCH (09:35)
[2018-11-03] MEDS: SENNA/DOCUSATE TABLET PO SCH (09:35)
[2018-11-03 12:09] VITALS: BP 128/77
[2018-11-03] MEDS: LIDOCAINE 2% VISCOUS 15 ML UDC MM PRN (12:13)
[2018-11-03 19:21] VITALS: BP 130/84
[2018-11-03] MEDS: GABAPENTIN 300 MG CAPSULE PO PRN (19:34)
[2018-11-03] MEDS ORDERED: LIDODERM 5% PATCH TD PRN (21:00)
[2018-11-04] MEDS: ACYCLOVIR OINT 5%, 15GM TP SCH ×3 (00:42→10:30)
[2018-11-04] MEDS: LIDOCAINE 2% VISCOUS 15 ML UDC MM PRN (00:43)
[2018-11-04 01:59] VITALS: BP 130/84
[2018-11-04] MEDS: ALBUTEROL SULFATE 2.5 MG/3 ML NPPB SCH (02:39)
[2018-11-04] MEDS: GABAPENTIN 300 MG CAPSULE PO PRN (06:34)
[2018-11-04] MEDS: METOPROLOL TARTRATE 25 MG TABLET PO SCH (06:34)
[2018-11-04 07:48] VITALS: BP 141/87
[2018-11-04] MEDS: SENNA/DOCUSATE TABLET PO SCH (07:51)
[2018-11-04] MEDS: ASPIRIN 81 MG TABLET EC PO SCH (07:51)
[2018-11-04] MEDS ORDERED: predniSONE 50MG TABLET PO SCH (08:00)
[2018-11-04] MEDS ORDERED: VALA1000 PO (08:03)
[2018-11-04] MEDS ORDERED: PRED20TA PO (08:43)
[2018-11-04] MEDS ORDERED: VALACYCLOVIR 500MG TABLET PO SCH (09:00)
== END 2018-11-04 11:30 | disposition home or self-care (01) | DRG 189 ==
LOC: ED 15:22 → EDIP 15:27 → ED 15:41 → 3NW 16:35
PROVIDERS: ADMIT Internal Medicine; ATTEND Internal Medicine
DX: J96.21 Acute and chronic respiratory failure with hypoxia (principal); J44.1 Chronic obstructive pulmonary disease with (acute) exacerbation; E46 Unspecified protein-calorie malnutrition; Z87.01 Personal history of pneumonia (recurrent); I10 Essential (primary) hypertension; R73.9 Hyperglycemia, unspecified; R53.81 Other malaise; E66.01 Morbid (severe) obesity due to excess calories; E87.5 Hyperkalemia; E78.5 Hyperlipidemia, unspecified; Z68.37 Body mass index [BMI] 37.0-37.9, adult; Z83.3 Family history of diabetes mellitus; Z82.5 Family history of asthma and other chronic lower respiratory diseases
CPT/HCPCS: 36415; 71045; 71046; 74230; 80053; 83735; 83880; 84100; 84439; 84443; 84484; 85025; 87081; 87400; 87880; 93005; 94640; 99285; G0378; J7613; J7620; J7626; J2930; J7512

== ENCOUNTER 2018-12-05 12:47 | Inpatient (IN) | payer MEDICARE ==
[~2018-12-05] VITALS: Ht 175.3 cm; Wt 121.3 kg
[~2018-12-05 12:47] MED LIST changes: +PRED20TA PO; +VALA1000 PO
--- NOTE | 2018-12-05 12:56 | NUR ---
PLACED ON 4L NC IN TRIAGE WITH IMPROVEMENT OF SPO2 TO 93
[2018-12-05 13:54] LABS: BASOPHILS # (AUTO) 0.04 x10^3/uL (0-0.1); BASOPHILS % (AUTO) 0 % (0-1); EOSINOPHILS # (AUTO) 0.06 x10^3/uL (0-0.4); EOSINOPHILS % (AUTO) 1 % (1-7); LYMPHOCYTES # (AUTO) 1.01 x10^3/uL (1-3.4); LYMPHOCYTES % (AUTO) 11 % (22-44); MD NO; MEAN CORPUSCULAR HEMOGLOBIN 28.8 pg (27.5-34.5); MEAN CORPUSCULAR HGB CONC 32.2 g/dL (33.2-36.2); MEAN CORPUSCULAR VOLUME 89.5 fL (81-97); MEAN PLATELET VOLUME 7.9 fL (7.4-10.4); MONOCYTES # (AUTO) 0.88 x10^3/uL (0.2-0.8); MONOCYTES % (AUTO) 10 % (2-9); NEUTROPHILS # (AUTO) 7.29 x10^3/uL (1.8-6.8); NEUTROPHILS % (AUTO) 79 % (42-75); PLATELET COUNT 206 x10^3/uL (130-400); RED BLOOD COUNT 4.49 x10^6/uL (4.38-5.82); RED CELL DISTRIBUTION WIDTH 16.3 % (9.4-14.8)
[2018-12-05 13:55] LABS: ALANINE AMINOTRANSFERASE 23 U/L (12-78); ALBUMIN 3.6 g/dL (3.4-5.0); ANION GAP 5 mmol/L (5-15); CALCIUM 8.9 mg/dL (8.5-10.1); CHLORIDE 108 mmol/L (98-107); CREATININE 0.96 mg/dL (0.7-1.3)
[2018-12-05 14:00] LABS: ALKALINE PHOSPHATASE 43 U/L (45-117); BILIRUBIN,TOTAL 0.5 mg/dL (0.2-1.0); TOTAL PROTEIN 7.1 g/dL (6.4-8.2)
[2018-12-05 14:09] LABS: INTERNATIONAL NORMALIZED RATIO 1.02 (0.93-1.1); PROTHROMBIN TIME 10.7 Seconds (9.6-11.5)
[2018-12-05] MEDS ORDERED: METO50TA82 PO (15:08)
--- NOTE | 2018-12-05 15:18 | NUR ---
PT TO CT AT THIS TIME.
[2018-12-05] MEDS ORDERED: OMNIPAQUE 350 MG/ML, 100ML BOTTLE ONE (15:42)
[2018-12-05] MEDS ORDERED: ALBUTEROL/IPRATROPIUM 2.5MG/0.5MG, 3 ML NPPB ONE (16:30)
[2018-12-05] MEDS ORDERED: methylPREDNISolone SOD SUCC 125 MG/2 ML IVP ONE (16:30)
[2018-12-05] MEDS ORDERED: methylPREDNISolone SOD SUCC 125 MG/2 ML ONE (17:20)
[2018-12-05] MEDS ORDERED: ONDANSETRON 2MG/ML, 2ML IVPush PRN (17:30)
[2018-12-05] MEDS ORDERED: ONDANSETRON ODT 4 MG PO PRN (17:30)
[2018-12-05] MEDS ORDERED: ACETAMINOPHEN 325 MG TABLET PO PRN (17:30)
[2018-12-05] MEDS ORDERED: GABAPENTIN 300 MG CAPSULE PO PRN (17:30)
[2018-12-05] MEDS: ISOSORBIDE DINITRATE 10 MG TABLET PO SCH ×2 (17:30→21:43)
[2018-12-05 19:23] VITALS: BP 181/104
[2018-12-05] MEDS ORDERED: APIXABAN 5 MG TABLET PO ONE (21:00)
[2018-12-05] MEDS: TEMPLATE NON-FORMULARY MED. (Fluticasone/Salmeterol** (Advair 250-50 Diskus**) 1 PUFF) INH SCH (21:00)
[2018-12-05] MEDS: SODIUM CHLORIDE 0.9% 1,000 ML IV SCH (21:39)
[2018-12-05] MEDS: GUAIFENESIN 200 MG TABLET PO SCH (21:43)
[2018-12-05] MEDS: VALACYCLOVIR 500MG TABLET PO SCH (21:43)
[2018-12-05] MEDS: APIXABAN 5 MG TABLET PO SCH (21:43)
[2018-12-05] MEDS: CARVEDILOL 6.25 MG TABLET PO SCH (21:44)
[2018-12-05] MEDS: NYSTATIN 500,000 UNITS/5 ML UDC PO SCH (21:44)
[2018-12-05 21:51] VITALS: BP 182/102
[2018-12-06 00:34] VITALS: BP 139/72
[2018-12-06] MEDS: ALBUTEROL SULFATE 2.5 MG/3 ML NPPB SCH ×5 (02:03→20:36)
[2018-12-06 03:19] VITALS: BP 158/90
[2018-12-06] MEDS: NYSTATIN 500,000 UNITS/5 ML UDC PO SCH ×4 (03:32→20:28)
[2018-12-06] MEDS: GUAIFENESIN 200 MG TABLET PO SCH ×4 (05:51→20:28)
[2018-12-06] MEDS: CARVEDILOL 6.25 MG TABLET PO SCH (05:51)
[2018-12-06 06:05] LABS: BASOPHILS % (AUTO) 0 % (0-1); EOSINOPHILS % (AUTO) 0 % (1-7); LYMPHOCYTES # (AUTO) 0.58 x10^3/uL (1-3.4); LYMPHOCYTES % (AUTO) 5 % (22-44); MD NO; MEAN CORPUSCULAR HEMOGLOBIN 29.8 pg (27.5-34.5); MEAN CORPUSCULAR HGB CONC 32.8 g/dL (33.2-36.2); MEAN PLATELET VOLUME 8.2 fL (7.4-10.4); MONOCYTES # (AUTO) 0.08 x10^3/uL (0.2-0.8); MONOCYTES % (AUTO) 1 % (2-9); NEUTROPHILS # (AUTO) 10.44 x10^3/uL (1.8-6.8); NEUTROPHILS % (AUTO) 94 % (42-75); PLATELET COUNT 235 x10^3/uL (130-400); RED BLOOD COUNT 4.59 x10^6/uL (4.38-5.82); RED CELL DISTRIBUTION WIDTH 16.4 % (9.4-14.8)
[2018-12-06 06:16] LABS: ANION GAP 4 mmol/L (5-15); CHLORIDE 107 mmol/L (98-107); CREATININE 0.84 mg/dL (0.7-1.3)
[2018-12-06 06:45] VITALS: BP 135/76
[2018-12-06] MEDS: BUDESONIDE 0.5 MG/2 ML INHA NPPB SCH ×2 (07:20→20:36)
[2018-12-06] MEDS: ISOSORBIDE DINITRATE 10 MG TABLET PO SCH ×3 (08:25→21:00)
[2018-12-06] MEDS: VALACYCLOVIR 500MG TABLET PO SCH ×2 (08:25→20:29)
[2018-12-06] MEDS: ASPIRIN 81 MG TABLET EC PO SCH (08:25)
[2018-12-06] MEDS: APIXABAN 5 MG TABLET PO SCH ×2 (08:26→20:29)
[2018-12-06] MEDS: TEMPLATE NON-FORMULARY MED. (Fluticasone/Salmeterol** (Advair 250-50 Diskus**) 1 PUFF) INH SCH ×2 (08:42→21:00)
[2018-12-06] MEDS: SODIUM CHLORIDE 0.9% 1,000 ML IV SCH (11:00)
[2018-12-06 12:16] VITALS: BP 143/76
[2018-12-06] MEDS: CARVEDILOL 12.5 MG TABLET PO SCH (17:46)
[2018-12-06 19:58] VITALS: BP 115/67
[2018-12-06] MEDS ORDERED: ISOSORBIDE DINITRATE 20 MG TABLET ONE (20:21)
[2018-12-07] MEDS ORDERED: TEMAZEPAM 15 MG CAPSULE PO PRN
[2018-12-07 00:34] VITALS: BP 131/69
[2018-12-07] MEDS: ALBUTEROL SULFATE 2.5 MG/3 ML NPPB SCH ×2 (02:23→09:00)
[2018-12-07] MEDS: NYSTATIN 500,000 UNITS/5 ML UDC PO SCH ×2 (03:15→10:26)
[2018-12-07] MEDS: SODIUM CHLORIDE 0.9% 1,000 ML IV SCH (03:44)
[2018-12-07 06:11] VITALS: BP 118/72
[2018-12-07] MEDS: GUAIFENESIN 200 MG TABLET PO SCH ×2 (06:14→11:26)
[2018-12-07] MEDS: CARVEDILOL 12.5 MG TABLET PO SCH (06:14)
[2018-12-07 06:57] LABS: BASOPHILS # (AUTO) 0.03 x10^3/uL (0-0.1); BASOPHILS % (AUTO) 0 % (0-1); EOSINOPHILS # (AUTO) 0.06 x10^3/uL (0-0.4); EOSINOPHILS % (AUTO) 1 % (1-7); LYMPHOCYTES % (AUTO) 12 % (22-44); MD NO; MEAN CORPUSCULAR HEMOGLOBIN 29.5 pg (27.5-34.5); MEAN CORPUSCULAR VOLUME 92.1 fL (81-97); MEAN PLATELET VOLUME 8.1 fL (7.4-10.4); MONOCYTES # (AUTO) 0.92 x10^3/uL (0.2-0.8); MONOCYTES % (AUTO) 8 % (2-9); NEUTROPHILS % (AUTO) 79 % (42-75); PLATELET COUNT 205 x10^3/uL (130-400); RED BLOOD COUNT 4.18 x10^6/uL (4.38-5.82); RED CELL DISTRIBUTION WIDTH 17.2 % (9.4-14.8)
[2018-12-07 07:08] LABS: CALCIUM 8.2 mg/dL (8.5-10.1)
[2018-12-07 07:11] LABS: CREATININE 0.93 mg/dL (0.7-1.3)
[2018-12-07 07:22] LABS: ANION GAP 6 mmol/L (5-15); CHLORIDE 110 mmol/L (98-107)
[2018-12-07 08:15] VITALS: BP 101/67
[2018-12-07] MEDS: ISOSORBIDE DINITRATE 10 MG TABLET PO SCH ×2 (08:18→09:00)
[2018-12-07] MEDS: APIXABAN 5 MG TABLET PO SCH (08:18)
[2018-12-07] MEDS: ASPIRIN 81 MG TABLET EC PO SCH (08:18)
[2018-12-07] MEDS: VALACYCLOVIR 500MG TABLET PO SCH (08:18)
[2018-12-07] MEDS: TEMPLATE NON-FORMULARY MED. (Fluticasone/Salmeterol** (Advair 250-50 Diskus**) 1 PUFF) INH SCH (08:19)
[2018-12-07] MEDS: BUDESONIDE 0.5 MG/2 ML INHA NPPB SCH (09:00)
[2018-12-07] MEDS ORDERED: AMOX1TAB64 PO (12:30)
[2018-12-07] MEDS ORDERED: APIX5TAB PO ×2 (12:30)
[2018-12-07] MEDS ORDERED: ALBUTEROL SULFATE 2.5 MG/3 ML NPPB PRN (13:30)
[2018-12-07] MEDS ORDERED: BUDESONIDE 0.5 MG/2 ML INHA NPPB PRN (13:30)
[2018-12-07 15:10] VITALS: BP 139/82
== END 2018-12-07 16:38 | disposition home or self-care (01) | DRG 299 ==
LOC: ED 14:08 → EDIP 16:13 → 3NE 18:36 → DCLOUNGE 12-07 16:38
PROVIDERS: ADMIT Internal Medicine; ATTEND Internal Medicine
DX: I82.B12 Acute embolism and thrombosis of left subclavian vein (principal); J96.21 Acute and chronic respiratory failure with hypoxia; J44.1 Chronic obstructive pulmonary disease with (acute) exacerbation; J44.0 Chronic obstructive pulmonary disease with (acute) lower respiratory infection; I82.A12 Acute embolism and thrombosis of left axillary vein; E66.9 Obesity, unspecified; Z68.39 Body mass index [BMI] 39.0-39.9, adult; I10 Essential (primary) hypertension; I45.10 Unspecified right bundle-branch block; K12.1 Other forms of stomatitis; K14.0 Glossitis; Z82.5 Family history of asthma and other chronic lower respiratory diseases; Z88.8 Allergy status to other drugs, medicaments and biological substances; Z83.3 Family history of diabetes mellitus; Z87.891 Personal history of nicotine dependence; Z99.81 Dependence on supplemental oxygen; J20.9 Acute bronchitis, unspecified
CPT/HCPCS: 36415; 36600; 71045; 71275; 80048; 80053; 82803; 83880; 84484; 85025; 85610; 85730; 93005; 94640; 96374; 99285; G0378; J7613; J7620; J7626; Q9967; J2930; J7030

== ENCOUNTER 2020-03-26 16:12 | Emergency (ER) | payer MEDICARE ==
[~2020-03-26] VITALS: Ht 175.3 cm; Wt 109.3 kg
[~2020-03-26 16:12] MED LIST changes: -ALBU6.7H INH; +ALBU6.7H8 INH; +AMOX1TAB64 PO; +APIX5TAB PO; +ATOR40TA78 PO; +BENZ-17 PO; +CHLO473M MM; +DOCU100C33 PO; +FURO40TA6 PO; +GUAI200T37 PO; +IPRA3AMP30 NPPB; +LOSA25TA25 PO; +METO50TA82 PO; +PANT40TA6 PO; +POLY17PO5 PO; +POTA20TA6 PO; +PRED5TAB PO; -VALA1000 PO; +VALA10007 PO
[2020-03-26 17:36] LABS: BASOPHILS % (AUTO) 1 % (0-1); EOSINOPHILS % (AUTO) 2 % (1-7); LYMPHOCYTES % (AUTO) 13 % (22-44); MEAN CORPUSCULAR HEMOGLOBIN 27.3 pg (27.5-34.5); MEAN CORPUSCULAR HGB CONC 32.4 g/dL (33.2-36.2); MEAN PLATELET VOLUME 8.1 fL (7.4-10.4); MONOCYTES % (AUTO) 11 % (2-9); NEUTROPHILS % (AUTO) 73 % (42-75); PLATELET COUNT 182 x10^3/uL (130-400); RED BLOOD COUNT 4.82 x10^6/uL (4.38-5.82); RED CELL DISTRIBUTION WIDTH 16.2 % (9.4-14.8)
[2020-03-26 17:40] LABS: MD NO
[2020-03-26 17:45] LABS: ALBUMIN 3.7 g/dL (3.4-5.0); ANION GAP 4 mmol/L (5-15); CALCIUM 8.7 mg/dL (8.5-10.1); CHLORIDE 107 mmol/L (98-107); CREATININE 0.89 mg/dL (0.7-1.3)
[2020-03-26 17:49] LABS: TROPONIN I < 0.015 ng/mL (0.000-0.045)
[2020-03-26 18:06] VITALS: BP 152/83
== END 2020-03-26 18:47 | disposition home or self-care (01) ==
LOC: ED 16:54
DX: B34.9 Viral infection, unspecified (principal); R06.00 Dyspnea, unspecified; R50.9 Fever, unspecified; I45.10 Unspecified right bundle-branch block; I10 Essential (primary) hypertension; J44.9 Chronic obstructive pulmonary disease, unspecified; Z86.718 Personal history of other venous thrombosis and embolism
CPT/HCPCS: 36415; 80048; 82040; 83880; 84484; 85025; 93005; 99284

== ENCOUNTER → 2020-06-04 | Outpatient (CLI) | payer MEDICARE ==
[~2020-06-04] MED LIST changes: +REGADENOSON 0.4 MG/5 ML SYRINGE ONE
== END | disposition home or self-care (01) ==
LOC: CFH 12:34
PROVIDERS: ATTEND Internal Medicine Cardiovascular Disease
DX: I45.10 Unspecified right bundle-branch block (principal); I10 Essential (primary) hypertension; R06.02 Shortness of breath
CPT/HCPCS: 78452; 93017; A9502; J2785